=== PATIENT | male | born 1955 | race Caucasian/White ===

== ENCOUNTER 2020-01-29 01:11 | Emergency (ER) | payer MEDICAID ==
[~2020-01-29] VITALS: Ht 157.5 cm; Wt 68.0 kg
[2020-01-29 01:25] VITALS: BP 121/87
[2020-01-29] MEDS ORDERED: Thiamine HCl 100 MG in D5W 55 ML IVPB ONE (01:45)
[2020-01-29 02:24] LABS: BASOPHILS % (AUTO) 1.6 % (0.0-2.0); EOSINOPHILS % (AUTO) 4.5 % (0.0-3.0); HEMATOCRIT 37.1 % (42.0-52.0); HEMOGLOBIN 11.7 G/DL (14.2-18.0); LYMPHOCYTES % (AUTO) 39.7 % (20.0-45.0); MEAN CORPUSCULAR VOLUME 96 FL (80-99); MONOCYTES % (AUTO) 8.6 % (1.0-10.0); NEUTROPHILS % (AUTO) 45.6 % (45.0-75.0); PLATELET COUNT 176 K/UL (150-450); RED BLOOD COUNT 3.85 M/UL (4.70-6.10); RED CELL DISTRIBUTION WIDTH 13.8 % (11.6-14.8); WHITE BLOOD COUNT 3.5 K/UL (4.8-10.8)
[2020-01-29 02:42] LABS: ANION GAP 10 mmol/L (5-15); BLOOD UREA NITROGEN 22 mg/dL (7-18); CALCIUM 7.9 MG/DL (8.5-10.1); CARBON DIOXIDE 26 MMOL/L (21-32); CHLORIDE 109 MMOL/L (98-107); CREATININE 0.8 MG/DL (0.55-1.30); POTASSIUM 3.1 MMOL/L (3.5-5.1); SODIUM 145 MMOL/L (136-145)
[2020-01-29 02:56] LABS: ALANINE AMINOTRANSFERASE 18 U/L (12-78); ALBUMIN 3.4 G/DL (3.4-5.0); ALBUMIN/GLOBULIN RATIO 1.1 (1.0-2.7); ALKALINE PHOSPHATASE 82 U/L (46-116); ASPARTATE AMINO TRANSFERASE 25 U/L (15-37); BILIRUBIN,TOTAL 0.1 MG/DL (0.2-1.0); CREATINE KINASE 272 U/L (26-308)
[2020-01-29 03:30] VITALS: BP 128/76
--- NOTE | 2020-01-29 03:40 | Emergency Room Report ---
History of Present Illness General Chief Complaint: Abdominal Pain Source: Patient, EMS Present Illness HPI Patient presents via EMS. They state the patient main complaint is abdominal pain. Patient somewhat denies that and states that his whole body is in discomfort at this time. He poorly describes this. He admits to drinking alcohol and smoking. Apparently this is led to difficulties with where he is living at the moment. He denies suicidal or homicidal ideation at this time. Patient denies vomiting blood coffee grounds or melena. He denies seizures. He says he drinks regularly. He states he is felt feverish but as no documented temperature. He feels weak and also depressed but more angry. He denies homicidal ideation at this time. No sore throat, palpitations, dysuria, shortness of breath, rashes, visual changes, dizziness, headache. 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 The patient was not placed on a hold or in custody Reviewed Nursing Documentation: PMH: Agreed; PSxH: Agreed Nursing Documentation-PMH Past Medical History: No Stated History Review of Systems All Other Systems: negative except mentioned in HPI Physical Exam Vital Signs Date Time Temp Pulse Resp B/P (MAP) Pulse Ox O2 Delivery O2 Flow Rate FiO2 01/29/20 01:11 98.2 80 18 132/76 (94) 96 Room Air 01/29/20 01:25 98 Sp02 EP Interpretation: reviewed, normal General Appearance: no apparent distress, GCS 15, non-toxic, other - Slightly disheveled Head: normocephalic Eyes: bilateral eye PERRL, bilateral eye EOMI, bilateral eye Scleral Injection ENT: moist mucus membranes - No lingual macerations Neck: full range of motion, supple Respiratory: lungs clear, normal breath sounds Cardiovascular #1: regular rate, rhythm Cardiovascular #2: 2+ radial (R) Gastrointestinal: normal inspection, normal bowel sounds, non tender, non- distended Genitourinary: no CVA tenderness Musculoskeletal: back normal, normal range of motion, gait/station normal Neurologic: alert, motor strength/tone normal, oriented - X2, sensory intact, other - Slurred speech, ambulatory Psychiatric: no suicidal/homicidal ideation, depressed affect - Alternating with somewhat aggressive statements Skin: no rash, warm/dry Medical Decision Making Homeless Attestation I, The treating physician Dr. Gomez, have assessed and agree that patient is medically stable for discharge to an outpatient disposition. Diagnostic Impression: Primary Impression: Alcohol intoxication Qualified Codes: F10.929 - Alcohol use, unspecified with intoxication, unspecified ER Course Patient with alcohol on his breath complains of total body pain when he initially complained about pain in his abdomen to paramedics. Differential includes acute myocardial infarction, acute intoxication, rhabdomyolysis, electrolyte imbalance, viral syndrome amongst others. The patient is evaluated with EKG, chest x-ray and labs. The patient will be treated with IV hydration and repeated exams. The patient is placed on a quality assurance monitor body. EKG is normal sinus rhythm with a normal EKG rate of 72. Chest x-ray with cardiomegaly no infiltrates. Low white blood cell count minimal anemia, low potassium, elevated BUN Patient resting calmly and receiving IV hydration. Plan to reevaluate when patient more sober. No apparent medical emergency at the moment. Patient will be evaluated in the morning. He seems to realize he has a problem with alcohol. He denies any pain at this time. He is familiar with [facility]. He ate in the emergency department. He states he feels better and is wanting to be discharged. He has not seen a doctor for several months but has one in [place]. He requested for referrals for new physicians. Patient was advised to abstain from alcohol and to return to [facility]. Patient stable for outpatient observation and treatment. Laboratory Tests Test 01/29/20 02:10 White Blood Count 3.5 K/UL (4.8-10.8) L Red Blood Count 3.85 M/UL (4.70-6.10) L Hemoglobin 11.7 G/DL (14.2-18.0) L Hematocrit 37.1 % (42.0-52.0) L Mean Corpuscular Volume 96 FL (80-99) Mean Corpuscular Hemoglobin 30.5 PG (27.0-31.0) Mean Corpuscular Hemoglobin Concent 31.6 G/DL (32.0-36.0) L Red Cell Distribution Width 13.8 % (11.6-14.8) Platelet Count 176 K/UL (150-450) Mean Platelet Volume 6.0 FL (6.5-10.1) L Neutrophils (%) (Auto) 45.6 % (45.0-75.0) Lymphocytes (%) (Auto) 39.7 % (20.0-45.0) Monocytes (%) (Auto) 8.6 % (1.0-10.0) Eosinophils (%) (Auto) 4.5 % (0.0-3.0) H Basophils (%) (Auto) 1.6 % (0.0-2.0) Sodium Level 145 MMOL/L (136-145) Potassium Level 3.1 MMOL/L (3.5-5.1) L Chloride Level 109 MMOL/L (98-107) H Carbon Dioxide Level 26 MMOL/L (21-32) Anion Gap 10 mmol/L (5-15) Blood Urea Nitrogen 22 mg/dL (7-18) H Creatinine 0.8 MG/DL (0.55-1.30) Estimated Glomerular Filtration Rate > 60 mL/min (>60) Glucose Level 143 MG/DL (74-106) H Lactic Acid Level 1.30 mmol/L (0.4-2.0) Calcium Level 7.9 MG/DL (8.5-10.1) L Total Bilirubin 0.1 MG/DL (0.2-1.0) L Aspartate Amino Transferase (AST) 25 U/L (15-37) Alanine Aminotransferase (ALT) 18 U/L (12-78) Alkaline Phosphatase 82 U/L (46-116) Total Creatine Kinase 272 U/L (26-308) Troponin I 0.001 ng/mL (0.000-0.056) Pro-B-Type Natriuretic Peptide 76 pg/mL (0-125) Total Protein 6.5 G/DL (6.4-8.2) Albumin 3.4 G/DL (3.4-5.0) Globulin 3.1 g/dL Albumin/Globulin Ratio 1.1 (1.0-2.7) Salicylates Level 1.6 ug/mL (2.8-20) L Acetaminophen Level < 2 MCG/ML (10-30) L Serum Alcohol 327 mg/dL EKG Diagnostic Results Rate: normal Rhythm: NSR ST Segments: no acute changes Rhythm Strip Diag. Results EP Interpretation: yes Rhythm: NSR, no PVC's, no ectopy Chest X-Ray Diagnostic Results Chest X-Ray Diagnostic Results : Chest X-Ray Ordered: Yes # of Views/Limited/Complete: 1 View Indication: Chest Pain EP Interpretation: Yes Interpretation: no consolidation, no effusion, no pneumothorax, other - Cardiomegaly Impression: No acute disease - Cardiomegaly Electronically Signed by: Electronically signed by Jonathan Gomez MD Last Vital Signs Date Time Temp Pulse Resp B/P (MAP) Pulse Ox O2 Delivery O2 Flow Rate FiO2 01/29/20 06:13 98.0 82 18 132/82 98 Room Air 01/29/20 05:30 98 Status: improved Disposition: HOME, SELF-CARE Condition: Improved Scripts Acetaminophen (Tylenol) 325 Mg Tablet 650 MG ORAL Q6H PRN for Prn Pain/Headache/Temp > 101, #20 TAB 0 Refills Prov: Jonathan Gomez MD 01/29/20 Famotidine* (Pepcid 20mg tablet*) 20 Mg Tablet 20 MG ORAL DAILY, #30 TAB 0 Refills Prov: Jonathan Gomez MD 01/29/20 Referrals: NOT CHOSEN [facility]/,REFERRING (PCP) Jonathan Gomez MD Jan 29, 2020 03:40
[2020-01-29 05:30] VITALS: BP 136/82
[2020-01-29] MEDS ORDERED: FAMOTIDINE20 MG ORAL (06:01)
[2020-01-29] MEDS ORDERED: TYLENOL325 MG ORAL (06:01)
[2020-01-29 06:13] VITALS: BP 132/82
--- NOTE | 2020-01-29 09:28 | Diagnostic Imaging Report ---
Procedure: XRAY Chest 1v Reason for study: Chest pain Comparison films: None. FINDINGS: A single one view chest is obtained. Vascularity is normal. The lung [place] are clear bilaterally. Cardiac and mediastinal silhouette are within normal limits. CP angles are sharp. The bony thorax appear unremarkable. IMPRESSION: NO ACUTE CARDIOPULMONARY DISEASE.
== END 2020-01-29 06:17 | disposition home or self-care (01) ==
LOC: EDBD 01:11 → EMR 01:36
DX: F10.929 Alcohol use, unspecified with intoxication, unspecified (principal); F17.200 Nicotine dependence, unspecified, uncomplicated; Z88.0 Allergy status to penicillin
CPT/HCPCS: 36415; 71045; 80053; 82550; 83605; 83880; 84484; 85025; 93005; 96361; 96365; 96375; G0480; G0481; J7030; S0028; Z7502; 99284; J8499

== ENCOUNTER 2020-02-16 01:03 | Emergency (ER) | payer MEDICAID ==
[~2020-02-16] VITALS: Ht 167.6 cm; Wt 81.6 kg
[2020-02-16 01:03] VITALS: BP 140/76
[~2020-02-16 01:03] MED LIST: FAMOTIDINE20 MG ORAL; TYLENOL325 MG ORAL
--- NOTE | 2020-02-16 02:33 | Emergency Room Report ---
History of Present Illness General Chief Complaint: Pain Source: Patient, EMS Present Illness HPI Disclaimer: Please note that this report is being documented using DRAGON technology. This can lead to erroneous entry secondary to incorrect interpretation by the dictating instrument. HPI: 64-year-old male presents by EMS from the street complaining of unilateral leg pain. Patient had originally told EMS he had right leg pain but unknown if there was an injury or duration of symptoms. He appears slightly intoxicated and somnolent. He is resting calmly on my evaluation in the room. He currently denies pain but this is stating need to sleep. 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 Unkempt and disheveled HEENT: NC/AT. EOMI. Resp: Normal work of breathing Skin: Intact. No abrasions, laceration or rash over the exposed skin MSK: Normal tone and bulk. Moving all extremities. No obvious deformity. Neuro: Sleeping comfortably but awakens to light touch. GCS 13. Sp02 EP Interpretation: reviewed Medical Decision Making Homeless Attestation Patient has been medically screened and is stable for outpatient follow up Diagnostic Impression: Primary Impression: Alcohol intoxication ER Course 64-year-old male originally presenting for evaluation of leg pain now denying complaints. Suspect the patient is intoxicated. He is requesting something to eat and drink and somewhere to rest. No evidence of trauma or deformity appreciated in his extremities. Will allow him to rest in the ED. Labs were obtained showing normal renal function, electrolytes within normal limits, elevated alcohol consistent with acute intoxication. 0600: Patient was allowed to metabolize in the ED and now clinically sober. He is ambulating steady gait to the bathroom. No indication for further work-up in the ED at this time. Refilled his medications in addition to thiamine and folate. Laboratory Tests Test 02/16/20 02:56 Sodium Level 142 MMOL/L (136-145) Potassium Level 3.6 MMOL/L (3.5-5.1) Chloride Level 102 MMOL/L (98-107) Carbon Dioxide Level 31 MMOL/L (21-32) Anion Gap 10 mmol/L (5-15) Blood Urea Nitrogen 19 mg/dL (7-18) H Creatinine 0.9 MG/DL (0.55-1.30) Estimated Glomerular Filtration Rate > 60 mL/min (>60) Glucose Level 98 MG/DL (74-106) Calcium Level 8.2 MG/DL (8.5-10.1) L Serum Alcohol 278 mg/dL Last Vital Signs Date Time Temp Pulse Resp B/P (MAP) Pulse Ox O2 Delivery O2 Flow Rate FiO2 02/16/20 01:02 98.2 74 16 140/76 (97) 98 Room Air Disposition: HOME, SELF-CARE Condition: Stable Scripts Ibuprofen* (MOTRIN*) 600 Mg Tablet 600 MG ORAL Q6H PRN for For Pain, #30 TAB 0 Refills Prov: Aristides Roque MD 02/16/20 Acetaminophen (Tylenol) 325 Mg Tablet 650 MG ORAL Q6H PRN for Prn Pain/Headache/Temp > 101, #20 TAB 0 Refills Prov: Aristdies Roque MD 02/16/20 Famotidine* (Pepcid 20mg tablet*) 20 Mg Tablet 20 MG ORAL DAILY, #30 TAB 0 Refills Prov: Aristides Roque MD 02/16/20 Folic Acid* (FOLIC ACID*) 1 Mg Tablet 1 MG ORAL DAILY, #30 TAB Prov: Aristides Roque MD 02/16/20 Thiamine Hcl* (VITAMIN B-1*) 100 Mg Tablet 100 MG ORAL DAILY, #30 TAB 0 Refills Prov: Aristides Roque MD 02/16/20 Referrals: NOT CHOSEN [facility]/,REFERRING (PCP) Aristides Roque MD Feb 16, 2020 02:33
[2020-02-16 03:00] VITALS: BP 139/79
[2020-02-16 03:11] LABS: ANION GAP 10 mmol/L (5-15); BLOOD UREA NITROGEN 19 mg/dL (7-18); CALCIUM 8.2 MG/DL (8.5-10.1); CARBON DIOXIDE 31 MMOL/L (21-32); CHLORIDE 102 MMOL/L (98-107); CREATININE 0.9 MG/DL (0.55-1.30); POTASSIUM 3.6 MMOL/L (3.5-5.1); SODIUM 142 MMOL/L (136-145)
[2020-02-16] MEDS ORDERED: VITAMIN B-1100 MG ORAL (05:09)
[2020-02-16] MEDS ORDERED: FOLIC ACID1 MG ORAL (05:09)
[2020-02-16] MEDS ORDERED: FAMOTIDINE20 MG ORAL (05:21)
[2020-02-16] MEDS ORDERED: TYLENOL325 MG ORAL (05:21)
[2020-02-16] MEDS ORDERED: IBUPROFEN600 M1 ORAL (05:21)
[2020-02-16 05:51] VITALS: BP 136/82
[2020-02-16 06:00] VITALS: BP 136/82
== END 2020-02-16 06:00 | disposition home or self-care (01) ==
LOC: EDBD 01:03 → EMR 01:22
DX: F10.129 Alcohol abuse with intoxication, unspecified (principal); Z88.0 Allergy status to penicillin
CPT/HCPCS: 36415; 80048; G0480; Z7502; 99283